=== PATIENT | male | born 1945 | race Caucasian/White ===

== ENCOUNTER → 2016-10-06 | Outpatient (CLI) | payer MEDICARE, OTHER ==
[2016-10-06 11:21] LABS: Basophils # (auto) 0 uL; Basophils % (auto) 0.4 % (0.0-2.0); DEFINITIVE VIEW TRANSMISSION; Eosinophils # (auto) 0.7 uL; Eosinophils % (auto) 6.1 % (0.0-7.0); Hematocrit 42.3 % (41.0-53.0); Hemoglobin 13.3 g/dL (13.5-17.5); Lymphocytes # (auto) 3.2 uL; Lymphocytes % (auto) 27.3 % (10.0-50.0); Mean Corpuscular Hemoglobin 22.2 pg (28.0-32.0); Mean Corpuscular Hgb Conc. 31.5 g/dL (32.0-36.0); Mean Corpuscular Volume 70.6 fL (80.0-100.0); Mean Platelet Volume 9.4 fL (7.4-10.4); Monocytes # (auto) 1.1 uL; Monocytes % (auto) 9.5 % (0.0-12.0); Neutrophils # (auto) 6.7 uL; Neutrophils % (auto) 56.7 % (37.0-80.0); Platelet Count (auto) 237 10^3/uL (140-450); Red Cell Distribution Width 15.8 % (11.6-16.0); White Blood Cell 11.8 10^3/uL (4.4-10.8)
[2016-10-06 11:41] LABS: Albumin 3.8 g/dL (3.4-5.0); Bilirubin, Total 0.9 mg/dL (0.2-1.0); Calcium 8.6 mg/dL (8.5-10.1); Potassium 4.2 mmol/L (3.5-5.1); Uric Acid 4.5 mg/dL (3.5-7.2)
== END | disposition home or self-care (01) ==
LOC: LAB 10:44
PROVIDERS: ATTEND Internal Medicine
DX: I10 Essential (primary) hypertension (principal); J01.00 Acute maxillary sinusitis, unspecified
CPT/HCPCS: 36415; 80053; 84550; 85025; 86141

== ENCOUNTER → 2017-08-28 | Outpatient (CLI) | payer MEDICARE, OTHER ==
[2017-08-28 12:01] LABS: Basophils # (auto) 0.1 uL; Basophils % (auto) 0.5 % (0.0-2.0); Eosinophils # (auto) 0.3 uL; Eosinophils % (auto) 2.4 % (0.0-7.0); Hematocrit 44.7 % (41.0-53.0); Hemoglobin 14.1 g/dL (13.5-17.5); Lymphocytes # (auto) 2.7 uL; Lymphocytes % (auto) 25.6 % (10.0-50.0); Mean Corpuscular Hemoglobin 22.4 pg (28.0-32.0); Mean Corpuscular Hgb Conc. 31.4 g/dL (32.0-36.0); Mean Corpuscular Volume 71.4 fL (80.0-100.0); Monocytes # (auto) 0.9 uL; Monocytes % (auto) 8.4 % (0.0-12.0); Neutrophils # (auto) 6.7 uL; Neutrophils % (auto) 63.1 % (37.0-80.0); Nucleated Red Blood Cells % 0.4 %; Platelet Count (auto) 232 10^3/uL (140-450); Red Blood Cells 6.26 10^6/uL (4.5-5.90); Red Cell Distribution Width 16.1 % (11.8-14.3); White Blood Cell 10.7 10^3/uL (4.4-10.8)
[2017-08-28 12:13] LABS: INR 0.95 (0.9-1.15); Partial Thromboplastin Time 30.1 sec (22.64-33.71); Prothrombin Time 10.4 sec (9.37-12.3)
[2017-08-28 12:19] LABS: Urine Bacteria NONE SEEN /hpf (None Seen); Urine Blood Negative /uL (Negative); Urine Mucus FEW (None Seen); Urine Specific Gravity 1.021 (1.001-1.035); Urine WBC <1 /hpf (0 - 3)
[2017-08-28 12:29] LABS: Free T4 (Free Thyroxine) 1.25 ng/dL (0.89-1.76); Prostate Specific Antigen 2.33 ng/mL (0.0-4.0)
[2017-08-28 12:30] LABS: Albumin 4.1 g/dL (3.4-5.0); BUN/Creatinine Ratio 14.4; Bilirubin, Total 1.1 mg/dL (0.2-1.0); Calcium 9.3 mg/dL (8.5-10.1); Potassium 4.1 mmol/L (3.5-5.1); Total Protein 8.3 g/dL (6.4-8.2)
== END | disposition home or self-care (01) ==
LOC: LAB 11:29
PROVIDERS: ATTEND Internal Medicine
DX: Z01.818 Encounter for other preprocedural examination (principal); I10 Essential (primary) hypertension; N40.0 Benign prostatic hyperplasia without lower urinary tract symptoms
CPT/HCPCS: 36415; 80053; 80061; 81001; 82043; 84153; 84439; 84443; 85025; 85610; 85730

== ENCOUNTER → 2019-04-11 | Outpatient (CLI) | payer MEDICARE, OTHER ==
[2019-04-11 10:31] LABS: Hematocrit 42.2 % (41.0-53.0); Mean Corpuscular Volume 69.5 fL (80.0-100.0); Nucleated Red Blood Cells % 0.2 %
[2019-04-11 10:39] LABS: Basophils # (auto) 0.1 uL; Basophils % (auto) 0.5 % (0.0-2.0); Eosinophils # (auto) 0.4 uL; Eosinophils % (auto) 3.1 % (0.0-7.0); Hemoglobin 13.2 g/dL (13.5-17.5); Lymphocytes # (auto) 2.3 uL; Mean Corpuscular Hemoglobin 21.7 pg (28.0-32.0); Mean Corpuscular Hgb Conc. 31.2 g/dL (32.0-36.0); Monocytes % (auto) 8.4 % (0.0-12.0); Neutrophils # (auto) 8.2 uL; Platelet Count (auto) 179 10^3/uL (140-450); Red Blood Cells 6.07 10^6/uL (4.5-5.90); Red Cell Distribution Width 15.8 % (11.8-14.3); White Blood Cell 11.9 10^3/uL (4.4-10.8)
[2019-04-11 11:31] LABS: Potassium 4.1 mmol/L (3.5-5.1)
[2019-04-11 11:38] LABS: Albumin 3.9 g/dL (3.4-5.0); BUN/Creatinine Ratio 12.9; Bilirubin, Total 1.2 mg/dL (0.2-1.0); Calcium 8.8 mg/dL (8.5-10.1); Total Protein 7.7 g/dL (6.4-8.2)
== END | disposition home or self-care (01) ==
LOC: LAB 09:34
PROVIDERS: ATTEND Internal Medicine
DX: I10 Essential (primary) hypertension (principal)
CPT/HCPCS: 36415; 80053; 85025

== ENCOUNTER → 2019-04-11 | Outpatient (CLI) | payer MEDICARE, OTHER | END | disposition home or self-care (01) | LOC: XYW 08:05 | PROVIDERS: ATTEND Internal Medicine | DX: I08.8 Other rheumatic multiple valve diseases (principal); I10 Essential (primary) hypertension | CPT/HCPCS: 93306 ==

== ENCOUNTER → 2020-06-30 | Outpatient (CLI) | payer MEDICARE, OTHER ==
[2020-06-30 11:11] LABS: BUN/Creatinine Ratio 11.7; Calcium 8.9 mg/dL (8.5-10.1); Potassium 3.9 mmol/L (3.5-5.1)
== END | disposition home or self-care (01) ==
LOC: LAB 10:25
PROVIDERS: ATTEND Urology
DX: N40.1 Benign prostatic hyperplasia with lower urinary tract symptoms (principal)
CPT/HCPCS: 36415; 80048

== ENCOUNTER → 2020-10-20 | Outpatient (CLI) | payer MEDICARE, OTHER ==
[2020-10-20 12:37] LABS: Band Neutrophils % (manual) 0; Basophils % (manual) 0 (0.0-2.0); Blast Cells 0; Myelocytes % 0; Promyelocytes % 0; Reactive Lymphocytes 0
[2020-10-20 12:43] LABS: Mean Corpuscular Volume 69.2 fL (80.0-100.0)
[2020-10-20 12:45] LABS: Hematocrit 38.9 % (41.0-53.0); Hemoglobin 12.2 g/dL (13.5-17.5); Mean Corpuscular Hemoglobin 21.6 pg (28.0-32.0); Mean Corpuscular Hgb Conc. 31.2 g/dL (32.0-36.0); Platelet Count (auto) 217 10^3/uL (140-450); Red Blood Cells 5.63 10^6/uL (4.5-5.90); Red Cell Distribution Width 16.7 % (11.8-14.3); White Blood Cell 11.1 10^3/uL (4.4-10.8)
[2020-10-20 13:07] LABS: Eosinophils % (manual) 2 (0-7); Lymphocytes % (manual) 23 (10.0-50.0); Metamyelocytes % 1; Monocytes % (manual) 7 (0-12)
[2020-10-20 13:13] LABS: Albumin 3.9 g/dL (3.4-5.0); Calcium 9.2 mg/dL (8.5-10.1); Potassium 3.9 mmol/L (3.5-5.1)
[2020-10-20 13:19] LABS: BUN/Creatinine Ratio 11.9; INR 0.99 (0.9-1.15); Total Protein 7.7 g/dL (6.4-8.2); Uric Acid 4.8 mg/dL (3.5-7.2)
== END | disposition home or self-care (01) ==
LOC: LAB 12:20
PROVIDERS: ATTEND Internal Medicine
DX: I10 Essential (primary) hypertension (principal); M10.9 Gout, unspecified; Z86.2 Personal history of diseases of the blood and blood-forming organs and certain disorders involving the immune mechanism
CPT/HCPCS: 36415; 80053; 84550; 85007; 85027; 85610; 85652

== ENCOUNTER 2022-04-25 21:56 | Emergency (ER) | payer MEDICARE, OTHER ==
[~2022-04-25] VITALS: Ht 167.6 cm; Wt 72.0 kg
[2022-04-26 00:14] LABS: Basophils # (auto) 0 10 ^3/uL (0-0.2); Basophils % (auto) 0.2 % (0.0-2.0); Eosinophils # (auto) 0 10 ^3/uL (0-0.8); Eosinophils % (auto) 0.1 % (0.0-7.0); Hematocrit 39.4 % (41.0-53.0); Hemoglobin 12.6 g/dL (13.5-17.5); Lymphocytes # (auto) 1.9 10 ^3/uL (0.4-5.4); Lymphocytes % (auto) 9.9 % (10.0-50.0); Mean Corpuscular Hemoglobin 22.3 pg (28.0-32.0); Mean Corpuscular Hgb Conc. 31.9 g/dL (32.0-36.0); Mean Corpuscular Volume 69.8 fL (80.0-100.0); Monocytes # (auto) 0.8 10 ^3/uL (0-1.3); Monocytes % (auto) 3.9 % (0.0-12.0); Neutrophils # (auto) 16.8 10 ^3/uL (1.6-8.6); Neutrophils % (auto) 85.9 % (37.0-80.0); Red Blood Cells 5.64 10^6/uL (4.5-5.90); Red Cell Distribution Width 16.1 % (11.8-14.3); White Blood Cell 19.6 10^3/uL (4.4-10.8)
[2022-04-26 00:27] LABS: Albumin 4.3 g/dL (3.4-5.0); BUN/Creatinine Ratio 12.8
[2022-04-26 00:38] LABS: Bilirubin, Total 0.7 mg/dL (0.2-1.0); Total Protein 7.9 g/dL (6.4-8.2)
[2022-04-26] MEDS ORDERED: HYDROmorphone HCL 2 MG/ML VL/or syr IV ONE (01:00)
[2022-04-26] MEDS ORDERED: ONDANSETRON HCL 4 MG/2 ML VIAL IV ONE (01:00)
[2022-04-26] MEDS ORDERED: HYDROcodone-ACET 5/325MG TAB PO ONE (02:00)
[2022-04-26 03:00] VITALS: BP 150/64
[2022-04-26 04:01] LABS: Urine Bacteria NONE SEEN /hpf (None Seen); Urine Blood Negative /uL (Negative); Urine Mucus FEW (None Seen); Urine Specific Gravity 1.027 (1.001-1.035); Urine WBC 1 /hpf (0 - 3)
[2022-04-26] MEDS ORDERED: PERCOT PO (04:47)
[2022-04-26] MEDS ORDERED: CIPR-173 PO (04:51)
== END 2022-04-26 05:16 | disposition home or self-care (01) ==
LOC: ER 21:58
DX: K80.20 Calculus of gallbladder without cholecystitis without obstruction (principal); Z90.49 Acquired absence of other specified parts of digestive tract
CPT/HCPCS: 36415; 74176; 80053; 81001; 83690; 84484; 85025; 93005; 96374; 99285; J2405

== ENCOUNTER 2022-04-27 10:05 | Inpatient (IN) | payer MEDICARE, OTHER ==
[~2022-04-27] VITALS: Ht 170.2 cm; Wt 72.2 kg
[~2022-04-27 10:05] MED LIST: CIPR-173 PO; PERCOT PO
[2022-04-27 10:39] LABS: Basophils # (auto) 0.1 10 ^3/uL (0-0.2); Basophils % (auto) 0.2 % (0.0-2.0); Eosinophils # (auto) 0 10 ^3/uL (0-0.8); Eosinophils % (auto) 0.1 % (0.0-7.0); Hematocrit 41.3 % (41.0-53.0); Hemoglobin 12.7 g/dL (13.5-17.5); Lymphocytes # (auto) 1.7 10 ^3/uL (0.4-5.4); Lymphocytes % (auto) 5.9 % (10.0-50.0); Mean Corpuscular Hgb Conc. 30.8 g/dL (32.0-36.0); Monocytes # (auto) 2.1 10 ^3/uL (0-1.3); Monocytes % (auto) 7.3 % (0.0-12.0); Neutrophils # (auto) 24.5 10 ^3/uL (1.6-8.6); Neutrophils % (auto) 86.5 % (37.0-80.0); Nucleated Red Blood Cells % 0.1 %; Red Blood Cells 5.99 10^6/uL (4.5-5.90); Red Cell Distribution Width 15.9 % (11.8-14.3); White Blood Cell 28.3 10^3/uL (4.4-10.8)
[2022-04-27 10:42] LABS: Mean Corpuscular Hemoglobin 21.3 pg (28.0-32.0)
[2022-04-27 10:57] LABS: Albumin 3.9 g/dL (3.4-5.0); BUN/Creatinine Ratio 10.7; Calcium 8.6 mg/dL (8.5-10.1); Potassium 4.1 mmol/L (3.5-5.1)
[2022-04-27 11:00] LABS: Bilirubin, Total 1.5 mg/dL (0.2-1.0); Total Protein 7.9 g/dL (6.4-8.2)
[2022-04-27] MEDS ORDERED: PANTOPRAZOLE 40 MG/10 ML VIAL INJ IV ONE ×2 (12:45→15:00)
[2022-04-27] MEDS ORDERED: SODIUM CHLORIDE 0.9% 500 ML IVB ONE (12:45)
[2022-04-27] MEDS ORDERED: MORPHINE SULFATE 4 MG/ML SYR/VIAL IV ONE (12:45)
[2022-04-27] MEDS ORDERED: ONDANSETRON HCL 4 MG/2 ML VIAL IV ONE (12:45)
[2022-04-27 13:21] LABS: Amylase 48 U/L (25-115); Lipase 128 U/L (73-393)
[2022-04-27] MEDS ORDERED: PIPERACILLIN-TAZOB 2.25GM 50 ML IV ONE (15:00)
[2022-04-27] MEDS ORDERED: NITROGLYCERIN 0.4 MG SL TAB SL PRN (15:00)
[2022-04-27] MEDS ORDERED: MORPHINE SULFATE INJ 2 MG/ml SYRG IV PRN (15:00)
[2022-04-27] MEDS ORDERED: SODIUM CHLORIDE 0.9% 1,000 ML IV SCH (15:00)
[2022-04-27] MEDS ORDERED: MORPHINE SULFATE INJ 2 MG/ml SYRG IM ONE (15:00)
[2022-04-27] MEDS ORDERED: ONDANSETRON HCL 4 MG/2 ML VIAL IV PRN (15:00)
[2022-04-27] MEDS ORDERED: KETOROLAC TROMETH 30 MG/ML 1ML VIAL IV ONE (15:15)
[2022-04-27 15:37] LABS: INR 1.08 (0.9-1.15)
[2022-04-27] MEDS ORDERED: LORazepam 2MG/ML-1ML VIAL IV PRN (16:15)
[2022-04-27] MEDS ORDERED: THIAMINE 100mg/ml INJ (200mg/2ml VIAL) IM ONE (16:15)
[2022-04-27] MEDS: SODIUM CHLORIDE 0.9% 1,000 ML IV SCH (22:29)
[2022-04-27] MEDS: PIPERACILLIN-TAZOB 3.375GM 100 ML IV SCH (22:30)
[2022-04-28] MEDS ORDERED: LACTTAB OR (00:44)
[2022-04-28] MEDS ORDERED: RANO500T2 PO (00:51)
[2022-04-28] MEDS ORDERED: MULT-1058 PO (00:51)
[2022-04-28] MEDS ORDERED: MAGN84TA4 PO (00:51)
[2022-04-28] MEDS ORDERED: FLUT250M2 INH (00:51)
[2022-04-28] MEDS ORDERED: MECL25TA18 PO (00:51)
[2022-04-28] MEDS ORDERED: ZINC220C8 PO (00:51)
[2022-04-28] MEDS ORDERED: CETI5SOL8 PO (00:51)
[2022-04-28] MEDS ORDERED: CREAPOW7 XX (00:51)
[2022-04-28] MEDS ORDERED: LIDO2SOL18 MT (00:51)
[2022-04-28] MEDS ORDERED: SERT50TA19 PO (00:51)
[2022-04-28] MEDS ORDERED: ACET650S12 RE (00:51)
[2022-04-28] MEDS ORDERED: LISI2.5T47 PO (00:51)
[2022-04-28] MEDS: SODIUM CHLORIDE 0.9% 1,000 ML IV SCH ×3 (01:14→21:15)
[2022-04-28 04:55] LABS: Basophils # (auto) 0 10 ^3/uL (0-0.2); Eosinophils # (auto) 0 10 ^3/uL (0-0.8); Eosinophils % (auto) 0.1 % (0.0-7.0); Hemoglobin 11.2 g/dL (13.5-17.5); Monocytes # (auto) 1.8 10 ^3/uL (0-1.3)
[2022-04-28 04:58] LABS: Basophils % (auto) 0.2 % (0.0-2.0); Hematocrit 36.1 % (41.0-53.0); Lymphocytes # (auto) 1.6 10 ^3/uL (0.4-5.4); Lymphocytes % (auto) 7.1 % (10.0-50.0); Mean Corpuscular Hemoglobin 21.4 pg (28.0-32.0); Mean Corpuscular Volume 69.2 fL (80.0-100.0); Neutrophils # (auto) 19.2 10 ^3/uL (1.6-8.6); Neutrophils % (auto) 84.6 % (37.0-80.0); Nucleated Red Blood Cells % 0.2 %; Red Blood Cells 5.22 10^6/uL (4.5-5.90); Red Cell Distribution Width 15.9 % (11.8-14.3); White Blood Cell 22.7 10^3/uL (4.4-10.8)
[2022-04-28] MEDS: KETOROLAC TROMETH 30 MG/ML 1ML VIAL IV PRN ×2 (05:10→22:07)
[2022-04-28 05:15] LABS: Potassium 3.7 mmol/L (3.5-5.1)
[2022-04-28 05:19] LABS: Albumin 3.3 g/dL (3.4-5.0); BUN/Creatinine Ratio 15.2; Calcium 8.6 mg/dL (8.5-10.1)
[2022-04-28 05:22] VITALS: BP 113/52
[2022-04-28] MEDS: PIPERACILLIN-TAZOB 3.375GM 100 ML IV SCH ×3 (05:30→22:07)
[2022-04-28 05:34] LABS: Bilirubin, Total 1.7 mg/dL (0.2-1.0); Total Protein 7.3 g/dL (6.4-8.2)
[2022-04-28 08:00] VITALS: BP 115/54
[2022-04-28] MEDS ORDERED: IOHEXOL 300 MG/ML 100ML BOTTLE IJ ONE (08:06)
[2022-04-28] MEDS: PANTOPRAZOLE 40 MG/10 ML VIAL INJ IV SCH (09:30)
[2022-04-28] MEDS: THIAMINE 100mg/ml INJ (200mg/2ml VIAL) IV SCH (09:31)
[2022-04-28] MEDS ORDERED: ACETAMINOPHEN 500 MG TAB PO PRN (11:00)
[2022-04-28 11:24] LABS: INR 1.08 (0.9-1.15); Partial Thromboplastin Time 32.9 sec (24.6-33.4)
[2022-04-28] MEDS ORDERED: ceFAZolin 1GM/50ML 100 ML IV ONE (12:26)
[2022-04-28] MEDS ORDERED: EPINEPHrine HCL 1 MG/1 ML AMP ONE (13:22)
[2022-04-28] MEDS ORDERED: MEPERIDINE HCL (50 MG/ML) 1 ML VIAL ONE (13:26)
[2022-04-28] MEDS ORDERED: MIDAZOLAM HCL 2MG/2ML 2ml VIAL (1mg/ml) ONE (13:26)
[2022-04-28] MEDS ORDERED: fentaNYL CITRATE 100 MCG/2 ML VL ONE (13:26)
[2022-04-28] MEDS ORDERED: DexAMETHasone SOD PHOS 10MG/1ML VIAL INJ ONE (13:44)
[2022-04-28] MEDS ORDERED: MORPHINE SULFATE 4 MG/ML SYR/VIAL IV PRN (13:45)
[2022-04-28] MEDS ORDERED: HYDROmorphone HCL 2 MG/ML VL/or syr IV PRN ×2 (13:45→14:15)
[2022-04-28] MEDS ORDERED: LABETALOL HCL 5 MG/ML 4ML SYRINGE IV PRN (13:45)
[2022-04-28] MEDS ORDERED: MIDAZOLAM HCL 2MG/2ML 2ml VIAL (1mg/ml) IV PRN (13:45)
[2022-04-28] MEDS ORDERED: ONDANSETRON HCL 4 MG/2 ML VIAL IV PRN (13:45)
[2022-04-28] MEDS ORDERED: ePHEDrine SULFATE 50 MG/ML AMP IV PRN (13:45)
[2022-04-28] MEDS ORDERED: ROCURONIUM 10MG/ML 10ML VIAL IV ONE (13:52)
[2022-04-28] MEDS ORDERED: PROPOFOL 10 MG/ML 20 ML IV ONE (13:52)
[2022-04-28] MEDS ORDERED: ACETAMINOPHEN/CODEINE#3 (300/30mg) TAB PO PRN (14:15)
[2022-04-28] MEDS ORDERED: SUGAMMADEX 200mg/2ml Vial (100MG/ML) IV ONE (14:18)
[2022-04-28 16:47] VITALS: BP 139/70
[2022-04-28] MEDS ORDERED: PHENYLEPHRINE HCL 10 MG/ML VL IV ONE (16:47)
[2022-04-28] MEDS ORDERED: ETOMIDATE (2MG/ML) 20ML VIAL IV ONE (16:47)
[2022-04-28] MEDS ORDERED: ONDANSETRON HCL 4 MG/2 ML VIAL IV ONE (16:47)
[2022-04-28] MEDS: D5W/SOD CHL 0.45%/KCL 20MEQ 1,000 ML IV SCH (16:54)
[2022-04-28 22:00] VITALS: BP 102/45
[2022-04-29 05:00] VITALS: BP 101/49
[2022-04-29 05:07] LABS: Basophils # (auto) 0 10 ^3/uL (0-0.2); Eosinophils # (auto) 0 10 ^3/uL (0-0.8); Hemoglobin 10.1 g/dL (13.5-17.5); Lymphocytes # (auto) 0.8 10 ^3/uL (0.4-5.4); Mean Corpuscular Hemoglobin 21.6 pg (28.0-32.0); Monocytes # (auto) 0.7 10 ^3/uL (0-1.3); White Blood Cell 12.8 10^3/uL (4.4-10.8)
[2022-04-29 05:12] LABS: Hematocrit 33.2 % (41.0-53.0); Lymphocytes % (auto) 6.1 % (10.0-50.0); Mean Corpuscular Hgb Conc. 30.4 g/dL (32.0-36.0); Mean Corpuscular Volume 71.1 fL (80.0-100.0); Monocytes % (auto) 5.2 % (0.0-12.0); Neutrophils # (auto) 11.4 10 ^3/uL (1.6-8.6); Neutrophils % (auto) 88.7 % (37.0-80.0); Red Blood Cells 4.67 10^6/uL (4.5-5.90); Red Cell Distribution Width 15.7 % (11.8-14.3)
[2022-04-29] MEDS: D5W/SOD CHL 0.45%/KCL 20MEQ 1,000 ML IV SCH ×2 (05:13→08:54)
[2022-04-29] MEDS: PIPERACILLIN-TAZOB 3.375GM 100 ML IV SCH ×3 (05:25→22:01)
[2022-04-29 05:30] LABS: Albumin 2.6 g/dL (3.4-5.0); Calcium 8.1 mg/dL (8.5-10.1); Potassium 4.8 mmol/L (3.5-5.1)
[2022-04-29 05:36] LABS: BUN/Creatinine Ratio 20.8; Total Protein 5.8 g/dL (6.4-8.2)
[2022-04-29] MEDS: SODIUM CHLORIDE 0.9% 1,000 ML IV SCH (07:15)
[2022-04-29] MEDS: PANTOPRAZOLE 40 MG/10 ML VIAL INJ IV SCH (08:51)
[2022-04-29] MEDS: THIAMINE 100mg/ml INJ (200mg/2ml VIAL) IV SCH (08:51)
[2022-04-29 09:49] VITALS: BP 100/53
[2022-04-29] MEDS: KETOROLAC TROMETH 30 MG/ML 1ML VIAL IV PRN ×2 (12:02→20:20)
[2022-04-29 13:00] VITALS: BP 111/56
[2022-04-29 16:17] VITALS: BP 122/54
[2022-04-29 22:00] VITALS: BP 142/73
[2022-04-30] MEDS: KETOROLAC TROMETH 30 MG/ML 1ML VIAL IV PRN (03:36)
[2022-04-30 05:00] VITALS: BP 93/40
[2022-04-30] MEDS: PIPERACILLIN-TAZOB 3.375GM 100 ML IV SCH (06:07)
[2022-04-30 07:00] LABS: Basophils # (auto) 0 10 ^3/uL (0-0.2); Basophils % (auto) 0.1 % (0.0-2.0); Eosinophils # (auto) 0 10 ^3/uL (0-0.8); Eosinophils % (auto) 0.2 % (0.0-7.0); Hemoglobin 9.2 g/dL (13.5-17.5); Monocytes # (auto) 1.2 10 ^3/uL (0-1.3); Red Blood Cells 4.25 10^6/uL (4.5-5.90)
[2022-04-30 07:02] LABS: Lymphocytes # (auto) 1.7 10 ^3/uL (0.4-5.4); Lymphocytes % (auto) 12.5 % (10.0-50.0); Mean Corpuscular Hemoglobin 21.6 pg (28.0-32.0); Mean Corpuscular Hgb Conc. 31.7 g/dL (32.0-36.0); Mean Corpuscular Volume 68.2 fL (80.0-100.0); Monocytes % (auto) 8.5 % (0.0-12.0); Neutrophils # (auto) 10.7 10 ^3/uL (1.6-8.6); Neutrophils % (auto) 78.7 % (37.0-80.0); Nucleated Red Blood Cells % 0.1 %; Red Cell Distribution Width 15.1 % (11.8-14.3); White Blood Cell 13.5 10^3/uL (4.4-10.8)
[2022-04-30 07:04] LABS: Albumin 2.4 g/dL (3.4-5.0); Calcium 7.9 mg/dL (8.5-10.1)
[2022-04-30 07:08] LABS: BUN/Creatinine Ratio 28.2; Bilirubin, Total 0.8 mg/dL (0.2-1.0); Total Protein 5.3 g/dL (6.4-8.2)
[2022-04-30 09:00] VITALS: BP 123/53
[2022-04-30] MEDS: THIAMINE 100mg/ml INJ (200mg/2ml VIAL) IV SCH (09:56)
[2022-04-30] MEDS: PANTOPRAZOLE 40 MG/10 ML VIAL INJ IV SCH (09:57)
[2022-04-30] MEDS ORDERED: LEVO500T31 PO (10:53)
[2022-04-30] MEDS ORDERED: METR500T PO (10:53)
[2022-04-30] MEDS ORDERED: TRAM50TA2 PO (10:54)
== END 2022-04-30 12:35 | disposition home or self-care (01) | DRG 854 ==
LOC: ER 10:05 → TELE 14:50 → TELE-CENTR 22:56
PROVIDERS: ADMIT Nurse Practitioner Family; ATTEND Student in an Organized Health Care Education/Training Program
PROC: 0FT44ZZ Resection of Gallbladder, Percutaneous Endoscopic Approach (ICD-10-PCS; principal; 2022-04-28 13:29)
DX: A41.9 Sepsis, unspecified organism (principal); K80.01 Calculus of gallbladder with acute cholecystitis with obstruction; D50.9 Iron deficiency anemia, unspecified; Z20.822 Contact with and (suspected) exposure to COVID-19; E66.9 Obesity, unspecified; Z85.51 Personal history of malignant neoplasm of bladder; Z90.6 Acquired absence of other parts of urinary tract; Z68.24 Body mass index [BMI] 24.0-24.9, adult
CPT/HCPCS: 36415; 71045; 74176; 74178; 76705; 80053; 81001; 82150; 83690; 84484; 85025; 85610; 85730; 86850; 86900; 86901; 87040; 87426; 93005; 93306; 96361; 96374; 96375; C9113; G0378; J0171; J0690; J1100; J1885; J2250; J2405; J2543; J2704

== ENCOUNTER → 2023-05-04 | Outpatient (CLI) | payer MEDICARE, OTHER ==
[~2023-05-04] MED LIST changes: +ACET650S12 RE; +CETI5SOL8 PO; +CREAPOW7 XX; +FLUT250M2 INH; +LACTTAB OR; +LEVO500T31 PO; +LIDO2SOL18 MT; +LISI2.5T47 PO; +MAGN84TA4 PO; +MECL1TAB32 PO; +METR500T PO; +MULT-1058 PO; +RANO500T2 PO; +SERT-206 PO; +TRAM50TA2 PO; +ZINC220C8 PO
[2023-05-04 11:39] LABS: Eosinophils # (auto) 0.4 10 ^3/uL (0-0.8); Hematocrit 40.6 % (41.0-53.0); Lymphocytes # (auto) 2.7 10 ^3/uL (0.4-5.4); Mean Corpuscular Volume 69.5 fL (80.0-100.0); Monocytes # (auto) 1.2 10 ^3/uL (0-1.3); Red Blood Cells 5.84 10^6/uL (4.5-5.90)
[2023-05-04 11:41] LABS: Basophils # (auto) 0 10 ^3/uL (0-0.2); Basophils % (auto) 0.5 % (0.0-2.0); Eosinophils % (auto) 3.6 % (0.0-7.0); Hemoglobin 12.8 g/dL (13.5-17.5); Lymphocytes % (auto) 26.2 % (10.0-50.0); Mean Corpuscular Hemoglobin 21.9 pg (28.0-32.0); Mean Corpuscular Hgb Conc. 31.6 g/dL (32.0-36.0); Monocytes % (auto) 11.6 % (0.0-12.0); Neutrophils % (auto) 58.1 % (37.0-80.0); Nucleated Red Blood Cells % 0.1 %; Red Cell Distribution Width 15.6 % (11.8-14.3); White Blood Cell 10.3 10^3/uL (4.4-10.8)
[2023-05-04 13:04] LABS: Alanine Aminotransferase 16 U/L (7-40); Albumin 4.8 g/dL (3.2-4.8); Alkaline Phosphatase 69 U/L (46-116); Anion Gap 6 (5-15); Aspartate Aminotransferase 17 U/L (13-40); BUN/Creatinine Ratio 13.8 (10.0-20.0); Bilirubin, Total 0.9 mg/dL (0.2-1.0); Blood Urea Nitrogen 17 mg/dL (9-23); Calcium 9.5 mg/dL (8.7-10.4); Carbon Dioxide 27 mmol/L (20-30); Chloride 104 mmol/L (98-107); Glucose 84 mg/dL (74-106); Potassium 4.4 mmol/L (3.5-5.1); Sodium 137 mmol/L (136-145)
[2023-05-04 13:07] LABS: Free T4 (Free Thyroxine) 1.16 ng/dL (0.89-1.76)
[2023-05-04 14:12] LABS: Triglycerides 76 mg/dL (< 150)
[2023-05-04 14:13] LABS: LDL Cholesterol 118 mg/dL (< 100)
[2023-05-04 14:14] LABS: Cholesterol 187 mg/dL (< 200); HDL Cholesterol 58 mg/dL (40-59)
== END | disposition home or self-care (01) ==
LOC: LAB 11:24
PROVIDERS: ATTEND Internal Medicine
DX: I10 Essential (primary) hypertension (principal)
CPT/HCPCS: 36415; 80053; 80061; 84403; 84439; 84443; 84481; 85025

== ENCOUNTER → 2023-05-16 | Outpatient (CLI) | payer MEDICARE, OTHER | END | disposition home or self-care (01) | LOC: XYW 08:52 | PROVIDERS: ATTEND Internal Medicine | DX: I08.8 Other rheumatic multiple valve diseases (principal) | CPT/HCPCS: 93306 ==

== ENCOUNTER → 2023-12-25 | Outpatient (CLI) | payer MEDICARE, OTHER ==
[~2023-12-25] MED LIST changes: +CETI5SOL52 PO; -CETI5SOL8 PO; +MECL-90 PO; -MECL1TAB32 PO
[2023-12-25 11:50] LABS: Urine Bacteria None Seen /hpf (None Seen)
[2023-12-25 12:20] LABS: Urine Blood Negative /uL (Negative); Urine Clarity Clear (Clear); Urine Color Yellow (Yellow); Urine Protein, UAD Negative (Negative); Urine Specific Gravity 1.019 (1.001-1.035); Urine Urobilinogen Normal (Negative); Urine WBC 1 /hpf (0 - 3)
[2023-12-25 12:25] LABS: Basophils # (auto) 0 10 ^3/uL (0-0.2); Hemoglobin 12.4 g/dL (13.5-17.5); Nucleated Red Blood Cells % 0.1 %
[2023-12-25 12:28] LABS: Basophils % (auto) 0.4 % (0.0-2.0); Eosinophils # (auto) 0.2 10 ^3/uL (0-0.8); Eosinophils % (auto) 2.4 % (0.0-7.0); Hematocrit 37.9 % (41.0-53.0); Lymphocytes # (auto) 2.7 10 ^3/uL (0.4-5.4); Lymphocytes % (auto) 27.9 % (10.0-50.0); Mean Corpuscular Hemoglobin 22.3 pg (28.0-32.0); Mean Corpuscular Hgb Conc. 32.7 g/dL (32.0-36.0); Mean Corpuscular Volume 68.3 fL (80.0-100.0); Monocytes # (auto) 0.9 10 ^3/uL (0-1.3); Monocytes % (auto) 9.5 % (0.0-12.0); Neutrophils # (auto) 5.7 10 ^3/uL (1.6-8.6); Neutrophils % (auto) 59.8 % (37.0-80.0); Red Blood Cells 5.56 10^6/uL (4.5-5.90); Red Cell Distribution Width 15.8 % (11.8-14.3); White Blood Cell 9.5 10^3/uL (4.4-10.8)
[2023-12-25 12:52] LABS: Alanine Aminotransferase 22 U/L (7-40); Albumin 4.4 g/dL (3.2-4.8); Alkaline Phosphatase 59 U/L (46-116); Amylase 106 U/L (30-118); Anion Gap 4 (5-15); Aspartate Aminotransferase 25 U/L (13-40); BUN/Creatinine Ratio 11.5 (10.0-20.0); Bilirubin, Total 1.1 mg/dL (0.2-1.0); Blood Urea Nitrogen 13 mg/dL (9-23); Calcium 9.6 mg/dL (8.5-10.1); Carbon Dioxide 27 mmol/L (20-30); Chloride 108 mmol/L (98-107); Creatine Kinase IFCC 232 U/L (46-171); Glucose 93 mg/dL (74-106); Potassium 4.5 mmol/L (3.5-5.1); Sodium 139 mmol/L (136-145); Total Protein 7.3 g/dL (5.7-8.2)
[2023-12-25 13:05] LABS: Uric Acid 7.6 mg/dL (3.7-9.2)
[2023-12-25 13:06] LABS: Lipase 61 U/L (12-53)
[2023-12-25 13:36] LABS: Erythrocyte Sedimentation Rate 2 mm/hr (0-20)
== END | disposition home or self-care (01) ==
LOC: LAB 11:35
PROVIDERS: ATTEND Internal Medicine
DX: Z12.5 Encounter for screening for malignant neoplasm of prostate (principal); K21.9 Gastro-esophageal reflux disease without esophagitis; C67.9 Malignant neoplasm of bladder, unspecified; M10.9 Gout, unspecified
CPT/HCPCS: 36415; 80053; 81001; 82150; 82550; 83690; 84153; 84550; 85025; 85652